=== PATIENT | female | born 1950 | race Caucasian/White ===

== ENCOUNTER 2019-01-02 22:05 | Observation (INO) ==
[2019-01-02] MEDS ORDERED: ASPIRIN 81 MG TAB.CHEW PO ONE (22:19)
[2019-01-02] MEDS: NITROGLYCERIN 0.4 MG/TAB BTL SL PRN ×3 (22:22→22:37)
[2019-01-02 22:27] LABS: Hematocrit 39.5 % (37.0-47.0); Hemoglobin 12.6 gm/dL (12.5-16.0); Mean Cell Volume 89.6 fl (78-100); Mean Corpuscular Hemoglobin 28.6 pg (27-31); Mean Corpuscular Hgb Conc 31.9 g/dl (32-36); Neutrophil # 4.5 K/mm3 (1.3-6.0); Neutrophil % 53.5 % (42-75.0); Platelet Count 182 K/mm3 (150-450); Red Blood Count 4.41 M/mm3 (4.2-5.4); Red Cell Distribution Width 14.5 % (11.5-14.0); White Blood Count 8.5 K/mm3 (4.0-10.5)
--- NOTE | 2019-01-02 22:27 | ERNOTE ---
Chest Pain/Cardiac HPI Chief Complaint: Chest Pain Time Seen by Provider: 01/02/19 22:16 Source: patient Exam Limitations: no limitations Immunizations: IMMUNIZATION HX Immunizations Up to Date Yes History of Influenza Vaccine Yes Hx Pneumococcal Vaccination Yes Allergies/Adverse Reactions: Allergies cephalexin Allergy (Intermediate, Verified 11/21/18 10:14) SOB mometasone furoate Allergy (Intermediate, Verified 11/21/18 10:14) Shortness of Breath Home Medications: HOME MEDICATIONS Calcium Carbonate/Vitamin D3 [Calcium 600 + Vit D Caplet] 1 ea PO BID 07/24/12 [Last Taken 01/02/19 08:00] Ranitidine HCl [Zantac] 300 mg PO HS 04/10/14 [Last Taken 01/01/19 22:00] Cholecalciferol [Vitamin D] 1,000 unit PO DAILY 07/17/18 [Last Taken 01/02/19 08:00] magnesium 30 mg tablet 30 mg PO DAILY 07/19/18 [Last Taken 01/02/19 08:00] aspirin 325 mg tablet 325 mg PO DAILY #90 tab 08/11/18 [Last Taken 01/02/19 08:00] lorazepam 1 mg tablet 1 mg PO HS PRN 08/11/18 [Last Taken 01/01/19 22:00] paliperidone ER 9 mg tablet,extended release 24 hr 9 mg PO QAM 08/11/18 [Last Taken 01/02/19 08:00] atorvastatin 80 mg tablet 80 mg PO DAILY #90 tab 11/11/18 [Last Taken 01/02/19 08:00] clopidogrel 75 mg tablet 75 mg PO DAILY #90 tab 11/11/18 [Last Taken 01/02/19 08:00] metoprolol tartrate 25 mg tablet 12.5 mg PO BID #90 tab 11/11/18 [Last Taken 01/02/19 18:00] Narrative: Patient states she had onset of left-sided aching chest pain at a 9 out of 10 since approximately 2 hours prior to arrival. She had 2 stents approximately 6 months ago and a additional stent 1 month after that. She states this feels similar but is worse. She denies other symptoms. She was at rest when the pain had onset. Timing: constant Severity/Quality: severe, aching Location: left chest Chest Pain Radiation: no radiation Activities at Onset: rest Modifying Factors - Improves: Present: nothing Modifying Factors - Worsens: Present: nothing Nitro Today/Relief: no nitro taken today Aspirin Treatment Today: 325 mg x 1, provided at home Associated Symptoms: Present: denies symptoms Prior Chest Pain/Cardiac Workup: Reports: prior chest pain, heart attack, cardiac cath Review of Systems - Review of Systems Constitutional: Absent: recent illness ENT: Absent: nose congestion, nasal drainage Respiratory: Absent: shortness of breath, cough Cardiology: Present: See HPI Gastrointestinal/Abdominal: Absent: nausea Genitourinary: Absent: frequency, pain Musculoskeletal: Absent: back pain Skin: Absent: rash Neurological: Absent: dizziness/light-headedness Endocrine: Absent: excessive sweating Medical History (Updated 08/11/18 @ 14:17 by Rose Augustin [facility]) Myocardial infarction (Resolved) 07/18/18 2 stents placed Headache occipital with suspected cervicogenic headaches and occipital neuralgia Hx of gastroesophageal reflux (GERD) Hx of osteopenia Menopausal syndrome Onset Date: ~12/08/12 Schizo-affective schizophrenia, chronic condition Visual changes Onset Date: ~07/16/17 Back pain Onset Date: ~10/10/13 Abnormal Pap smear of vagina follow up was WNL 02/04/16 Cough Onset Date: ~12/22/12 Surgical History: Surgical History (Updated 07/19/18 @ 15:56 by Sandie Ca [facility]) History of tympanoplasty of left ear collar bone repair Cervical polyp Onset Date: ~10/07/11 left History of colonoscopy Onset Date: ~04/25/14 [place]-sigmoid diverticulosis. Recheck 10 yrs. History of dilation and curettage Onset Date: ~10/07/11 [place] History of endometrial biopsy Onset Date: ~02/05/16 No hyperplasia, atypia, or malignant neoplasia identified. History of esophageal dilatation Onset Date: ~03/14/08 [place] History of esophagogastroduodenoscopy Onset Date: ~03/14/08 [place]-mild chronic active inflammation, reflux esophagitis. History of hysteroscopy Onset Date: ~10/07/11 [place] History of tympanoplasty Onset Date: ~12/31/1112 [place]-left [place] teeth removed Onset Date: ~1966 Family History: Family History (Updated 07/19/18 @ 15:58 by Sandie Ca [facility]) Sister Arthritis of the knees Hypertension Father Heart disease COPD (chronic obstructive pulmonary disease) Mother Myocardial infarction, Onset Age: 46 Other No pertinent family history Social History: Preferred Language [place]er Smoking Status Never smoker Psych History No pertinent hx Alcohol Use none Drug Use none (Last Updated 11/21/18 @ 12:33 by Izabella Gómez MD) No Social History Section defined Physical Exam - Physical Exam General Appearance: Present: wd/wn, alert, no apparent distress Head Exam: Present: normal inspection, no evidence of injury Ears, Nose, Throat: Present: normal ENT inspection Neck: Present: normal inspection, nontender, supple, full range of motion Respiratory: Present: no respiratory distress, no accessory muscle use, chest nontender, lungs clear Cardiovascular/Chest: Present: regular rate, rhythm, no murmur, extra beats Gastrointestinal/Abdominal: Present: normal bowel sounds, nontender, nondistended, soft Back Exam: Present: normal inspection, no CVA tenderness Extremity Exam: Present: normal inspection, normal range of motion, no edema Neurological Exam: Present: alert, oriented, normal mood/affect, no motor/sensory deficits Skin Exam: Present: normal color, warm/dry Lymphatic Exam: Present: no adenopathy Progress - Results and Orders Patient's Lab Results:: I have reviewed the patient's lab results. Results and Orders: Laboratory Tests 01/02/19 01/02/19 01/02/19 22:15 22:15 22:15 WBC 8.5 Hgb 12.6 Hct 39.5 Plt Count 182 PT 11.0 H INR (Anticoag Therapy) 1.12 H PTT ([place]) 25.2 Sodium 136 Potassium 3.4 D Chloride 100 BUN 24 H Creatinine 0.88 Random Glucose 104 Calcium 9.3 Total Bilirubin 0.5 AST 31 ALT 38 Alkaline Phosphatase 85 Troponin I Less than 0.017 Laboratory Tests 01/02/19 01/02/19 01/02/19 22:15 22:15 22:15 WBC 8.5 Hgb 12.6 Hct 39.5 Plt Count 182 PT 11.0 H INR (Anticoag Therapy) 1.12 H PTT ([place]) 25.2 Sodium 136 Potassium 3.4 D Chloride 100 BUN 24 H Creatinine 0.88 Random Glucose 104 Calcium 9.3 Total Bilirubin 0.5 AST 31 ALT 38 Alkaline Phosphatase 85 Troponin I Less than 0.017 01/03/19 01:10 WBC Hgb Hct Plt Count PT INR (Anticoag Therapy) PTT ([place]) Sodium Potassium Chloride BUN Creatinine Random Glucose Calcium Total Bilirubin AST ALT Alkaline Phosphatase Troponin I 0.023 - Vital Signs Patient's Vital Signs:: I have reviewed the patient's vital signs. Vital Signs: Vital Signs 01/02/19 22:13 Temperature 36.4 C Pulse Rate 69 Respiratory Rate 18 Blood Pressure 138/64 O2 Sat by Pulse Oximetry 98 - EKG EKG #1 EKG: NSR - with frequent PAC's., no ST T wave changes EKG read: Interp. by me - X-Ray X-Ray #1 X-Ray: chest Interpretation: Interp. by me X-ray Comments: No infiltrate or effusion, no pneumothorax. Cardiac silhouette appears normal. - Progress/Reassessment Chief Complaint: Chest Pain Progress:: Improved Progress Note-Subjective: 01/03/19 02:[address] Leahy and she agrees with obs admission for R/O MO. Departure Clinical Impression: History of myocardial infarction in last year Chest pain Qualifiers: Chest pain type: unspecified Qualified Code(s): R07.9 - Chest pain, unspecified - Departure Disposition: Still a patient Condition: Good
[2019-01-02 22:40] LABS: INR 1.12 INR (0.92-1.08); Partial Thrombolplastin Time 25.2 Seconds (24-32)
[2019-01-02 22:48] LABS: ALT 38 U/L (19-67); AST 31 U/L (0-48); Albumin * 3.5 gm/dl (3.4-5.0); Alkaline Phosphatase * 85 U/L (50-170); Anion Gap 11.6 mmol/L (6.8-13.8); BUN/Creatinine Ratio 27.3 (9.0-21.6); Bilirubin, Total 0.5 mg/dL (0.0-1.1); Blood Urea Nitrogen 24 mg/dL (3-23); Ca. Corrected For Albumin 9.4 mg/dL (8.4-10.2); Calcium * 9.3 mg/dL (7.9-10.9); Carbon Dioxide 27.8 mmol/L (24-32.6); Chloride 100 mmol/L (97-106); Glucose * 104 mg/dL (70-110); Potassium 3.4 mmol/L (3.4-4.6); Sodium 136 mmol/L (132-142); Total Protein 7.6 gm/dL (6.2-8.2); Troponin I Less than 0.017 ng/mL (0.00-0.10)
[2019-01-03] MEDS ORDERED: LORazepam 1 MG TABLET PO PRN (06:15)
--- NOTE | 2019-01-03 06:55 | HP ---
Chief Complaint - Chief Complaint Date of Service: 01/03/19 Time of Service: 06:40 Chief Complaint: chest pain History of Present Illness: Patient with PMHx of previous [place] with stents placed 5 months ago, presented with left sided chest pain. She reports it felt worse than her previous [place]. Initial troponin was negative, repeat was only 0.023. No signs of ischemia or infarct on EKG. She denies fevers, shortness of breath, cough, recent injury, anxiety. She was admitted to follow troponin and EKG. She is no longer having any pain, but reports she can tell she went through something yesterday. Medical History (Updated 01/03/19 @ 06:55 by Radha Leahy DO) Myocardial infarct Headache occipital with suspected cervicogenic headaches and occipital neuralgia Hx of gastroesophageal reflux (GERD) Hx of osteopenia Menopausal syndrome Onset Date: ~12/08/12 Schizo-affective schizophrenia, chronic condition Visual changes Onset Date: ~07/16/17 Back pain Onset Date: ~10/10/13 Abnormal Pap smear of vagina follow up was WNL 02/04/16 Cough Onset Date: ~12/22/12 Surgical History: Surgical History (Updated 01/03/19 @ 06:55 by Radha Leahy DO) History of tympanoplasty of left ear collar bone repair Cervical polyp Onset Date: ~10/07/11 left History of colonoscopy Onset Date: ~04/25/14 [place]-sigmoid diverticulosis. Recheck 10 yrs. History of dilation and curettage Onset Date: ~10/07/11 [place] History of endometrial biopsy Onset Date: ~02/05/16 No hyperplasia, atypia, or malignant neoplasia identified. History of esophageal dilatation Onset Date: ~03/14/08 [place] History of esophagogastroduodenoscopy Onset Date: ~03/14/08 [place]-mild chronic active inflammation, reflux esophagitis. History of tympanoplasty Onset Date: ~12/31/11 [place]-left [place] teeth removed Onset Date: ~1966 Family History: Family History (Updated 07/19/18 @ 15:58 by Sandie Ca [employer]) Sister Hypertension Arthritis of the knees Father COPD (chronic obstructive pulmonary disease) Heart disease Mother Myocardial infarction, Onset Age: 46 Other No pertinent family history Social History: Patient Lives/Resources [place] Utilized Occupation retired Preferred Language [place] Do you have any islam or Yes: buddhism cultural preference? Smoking Status Never smoker Have you smoked in the past 12 No months Do you dip or chew tobacco No Psych History No pertinent hx Alcohol Use none Drug Use none (Last Updated 11/21/18 @ 12:33 by Izabella Gómez MD) No Social History Section defined Review Of Systems (GEN) - Review of Systems Generalized/Overall Review: Absent: Fever EENTM: Absent: Throat Pain Respiratory: Absent: Cough, Shortness of Breath Cardiac: Present: Chest Pain. Absent: Edema Abdominal: Absent: Nausea Genitourinary: Present: No Symptoms Reported Skin: Present: No Symptoms Reported Immunizations: IMMUNIZATION HX Immunizations Up to Date Yes History of Influenza Vaccine Yes Hx Pneumococcal Vaccination Yes Allergies/Adverse Reactions: Allergies Allergy/AdvReac Type Severity Reaction Status Date / Time cephalexin Allergy Intermediate SOB Verified 11/21/18 10:14 mometasone furoate Allergy Intermediate Shortness Verified 11/21/18 10:14 of Breath Home Medications: HOME MEDICATIONS Calcium Carbonate/Vitamin D3 [Calcium 600 + Vit D Caplet] 1 ea PO BID 07/24/12 [Last Taken 01/02/19 08:00] Ranitidine HCl [Zantac] 300 mg PO HS 04/10/14 [Last Taken 01/01/19 22:00] Cholecalciferol [Vitamin D] 1,000 unit PO DAILY 07/17/18 [Last Taken 01/02/19 08:00] magnesium 30 mg tablet 30 mg PO DAILY 07/19/18 [Last Taken 01/02/19 08:00] aspirin 325 mg tablet 325 mg PO DAILY #90 tab 08/11/18 [Last Taken 01/02/19 08:00] lorazepam 1 mg tablet 1 mg PO HS PRN 08/11/18 [Last Taken 01/01/19 22:00] paliperidone ER 9 mg tablet,extended release 24 hr 9 mg PO QAM 08/11/18 [Last Taken 01/02/19 08:00] atorvastatin 80 mg tablet 80 mg PO DAILY #90 tab 11/11/18 [Last Taken 01/02/19 08:00] clopidogrel 75 mg tablet 75 mg PO DAILY #90 tab 11/11/18 [Last Taken 01/02/19 08:00] metoprolol tartrate 25 mg tablet 12.5 mg PO BID #90 tab 11/11/18 [Last Taken 01/02/19 18:00] Exam - Exam Vital Signs: Vital Signs - Last Taken Temp 36.4 C 01/03/19 02:41 Pulse 53 L 01/03/19 02:44 Resp 18 01/03/19 02:41 BP 115/48 01/03/19 02:41 Pulse Ox 96 01/03/19 02:41 Constitutional: Present: Alert, Oriented x3, Cooperative, No distress Respiratory: Present: chest non-tender, no respiratory distress, wheezing - mild, posterior bases Cardiovascular/Chest: Present: regular rate, rhythm Abdomen: Present: soft, nontender Extremity: Absent: lower extremity edema Neurologic: Present: alert Diagnostic Studies: Abnormal Lab Results 01/02/19 01/02/19 01/02/19 Range/Units 22:15 22:15 22:15 MCHC 31.9 L (32-36) g/dl RDW 14.5 H (11.5-14.0) % Monocytes % 11.9 H (0.0-9) % Eosinophils % 4.1 H (0.0-3.0) % PT 11.0 H (9.1-10.7) Seconds INR (Anticoag Therapy) 1.12 H (0.92-1.08) INR BUN 24 H (3-23) mg/dL BUN/Creatinine Ratio 27.3 H (9.0-21.6) Laboratory Results WBC 8.5 K/mm3 (4.0-10.5) 01/02/19 22:15 RBC 4.41 M/mm3 (4.2-5.4) 01/02/19 22:15 Hgb 12.6 gm/dL (12.5-16.0) 01/02/19 22:15 Hct 39.5 % (37.0-47.0) 01/02/19 22:15 MCV 89.6 fl (78-100) 01/02/19 22:15 MCH 28.6 pg (27-31) 01/02/19 22:15 MCHC 31.9 g/dl (32-36) L 01/02/19 22:15 RDW 14.5 % (11.5-14.0) H 01/02/19 22:15 Plt Count 182 K/mm3 (150-450) 01/02/19 22:15 MPV 11.0 fl (8-12.5) 01/02/19 22:15 Immature Gran % (Auto) 0.20 % (0.001-0.429) 01/02/19 22:15 Immature Gran # (Auto) 0.02 K/mm3 (0.000-0.0310) 01/02/19 22:15 53.5 % (42-75.0) 01/02/19 22:15 29.8 % (20-51) 01/02/19 22:15 11.9 % (0.0-9) H 01/02/19 22:15 4.1 % (0.0-3.0) H 01/02/19 22:15 0.5 % (0.0-1.0) 01/02/19 22:15 Nucleated RBC % 0.0 k/mm3 (0-1) 01/02/19 22:15 4.5 K/mm3 (1.3-6.0) 01/02/19 22:15 2.52 k/mm3 (1.5-3.5) 01/02/19 22:15 1.0 k/mm3 (0.0-1.0) 01/02/19 22:15 0.4 k/mm3 (0.0-0.7) 01/02/19 22:15 Absolute Basophils 0.0 k/mm3 (0.0-0.1) 01/02/19 22:15 PT 11.0 Seconds (9.1-10.7) H 01/02/19 22:15 INR (Anticoag Therapy) 1.12 INR (0.92-1.08) H 01/02/19 22:15 PTT ([place]) 25.2 Seconds (24-32) 01/02/19 22:15 Sodium 136 mmol/L (132-142) 01/02/19 22:15 136 mmol/L (130-142) 01/02/19 22:15 Potassium 3.4 mmol/L (3.4-4.6) D 01/02/19 22:15 Chloride 100 mmol/L (97-106) 01/02/19 22:15 Carbon Dioxide 27.8 mmol/L (24-32.6) 01/02/19 22:15 11.6 mmol/L (6.8-13.8) 01/02/19 22:15 BUN 24 mg/dL (3-23) H 01/02/19 22:15 0.88 mg/dL (0.4-1.4) 01/02/19 22:15 Est GFR (Non-Af Amer) 68 mL/min (60-130) 01/02/19 22:15 27.3 (9.0-21.6) H 01/02/19 22:15 104 mg/dL (70-110) 01/02/19 22:15 Calcium 9.3 mg/dL (7.9-10.9) 01/02/19 22:15 Calcium Adj for Albumin 9.4 mg/dL (8.4-10.2) 01/02/19 22:15 0.5 mg/dL (0.0-1.1) 01/02/19 22:15 AST 31 U/L (0-48) 01/02/19 22:15 ALT 38 U/L (19-67) 01/02/19 22:15 85 U/L (50-170) 01/02/19 22:15 0.023 ng/mL (0.00-0.10) 01/03/19 01:10 7.6 gm/dL (6.2-8.2) 01/02/19 22:15 3.5 gm/dl (3.4-5.0) 01/02/19 22:15 Assessment/Plan - Assessment/Plan (1) Chest pain Assessment: Differential includes ACS, DE, MSK, reflux, anxiety. With her history of DE, third troponin and EKG pending. Thus far not shown evidence of acute ischemia or infarct. Official read pending, but no obvious findings on chest x-ray. No concerning abnormalities on CBC or CMP. Should her troponin significantly increased, will potentially transfer. If no troponin elevation and no EKG changes, can DC home today. Problem: Resolved Qualifiers: Chest pain type: unspecified Qualified Code(s): R07.9 - Chest pain, unspecified (2) History of myocardial infarction in last year Assessment: Continue Plavix, metoprolol, aspirin, Crestor Problem: Chronic
--- NOTE | 2019-01-03 08:34 | DS ---
(1) Chest pain Problem: Resolved Qualifiers: Chest pain type: unspecified Qualified Code(s): R07.9 - Chest pain, unspecified (2) History of myocardial infarction in last year Problem: Chronic Description of Stay: atient with PMHx of previous [place] with stents placed 5 months ago, presented with left sided chest pain. She reports it felt worse than her previous [place]. Initial troponin was negative, repeat was only 0.023. No signs of ischemia or infarct on EKG. She denies fevers, shortness of breath, cough, recent injury, anxiety. Troponins were not elevated. She is no longer having any pain, but reports she can tell she went through something yesterday. She feels comfortable going home. Procedures Performed: none Results and Findings: Lab Pending Results 01/02/19 22:15: WBC 8.5, RBC 4.41, Hgb 12.6, Hct 39.5, MCV 89.6, MCH 28.6, MCHC 31.9 L, RDW 14.5 H, Plt Count 182, MPV 11.0, Immature Gran % (Auto) 0.20, Immature Gran # (Auto) 0.02, Neutrophils % 53.5, Lymphocytes % 29.8, Monocytes % 11.9 H, Eosinophils % 4.1 H, Basophils % 0.5, Nucleated RBC % 0.0, Neutrophils # 4.5, Lymphocytes # 2.52, Monocytes # 1.0, Eosinophils # 0.4, Absolute Basophils 0.0 01/02/19 22:15: PT 11.0 H, INR (Anticoag Therapy) 1.12 H, PTT ([place]) 25.2 01/02/19 22:15: Sodium 136, Plasma Sodium 136, Potassium 3.4 D, Chloride 100, Carbon Dioxide 27.8, Anion Gap 11.6, BUN 24 H, Creatinine 0.88, Est GFR (Non-Af Amer) 68, BUN/Creatinine Ratio 27.3 H, Random Glucose 104, Calcium 9.3, Calcium Adj for Albumin 9.4, Total Bilirubin 0.5, AST 31, ALT 38, Alkaline Phosphatase 85, Troponin I Less than 0.017, Total Protein 7.6, Albumin 3.5 01/03/19 01:10: Troponin I 0.023 01/03/19 07:00: Troponin I Less than 0.017 Discharge Location: Home Disposition: Home self-care Condition: Good Discharge Activity: Activity as tolerated Discharge Diet: General/regular food Referrals: Izabella Gómez MD [Primary Care Provider] - One Week Complete Home Medications List: Complete Home Medication List: Calcium Carbonate/Vitamin D3 [Calcium 600-Vit D3 400 Caplet] 1 ea PO BID 07/24/12 Ranitidine HCl [Zantac] 300 mg PO HS 04/10/14 Cholecalciferol [Vitamin D] 1,000 unit PO DAILY 07/17/18 magnesium 30 mg tablet 30 mg PO DAILY 07/19/18 aspirin 325 mg tablet 325 mg PO DAILY #90 tab 08/11/18 lorazepam 1 mg tablet 1 mg PO HS PRN 08/11/18 paliperidone ER 9 mg tablet,extended release 24 hr 9 mg PO QAM 08/11/18 atorvastatin 80 mg tablet 80 mg PO DAILY #90 tab 11/11/18 clopidogrel 75 mg tablet 75 mg PO DAILY #90 tab 11/11/18 metoprolol tartrate 25 mg tablet 12.5 mg PO BID #90 tab 11/11/18
[2019-01-03] MEDS ORDERED: ASPIRIN 325 MG TABLET.DR PO SCH (09:00)
[2019-01-03] MEDS ORDERED: PALIPERIDONE 9 MG PO SCH (09:00)
[2019-01-03] MEDS ORDERED: METOPROLOL TARTRATE 25 MG TABLET PO SCH (09:00)
[2019-01-03] MEDS ORDERED: CLOPIDOGREL BISULFATE 75 MG TABLET PO SCH (09:00)
[2019-01-03 09:40] VITALS: BP 119/48
[2019-01-03] MEDS ORDERED: ROSUVASTATIN CALCIUM 20 MG TABLET PO SCH (21:00)
[2019-01-03] MEDS ORDERED: FAMOTIDINE 20 MG TABLET PO SCH (21:00)
== END 2019-01-03 10:00 | disposition home or self-care (01) ==
LOC: ER 22:05 → MS 22:05
PROVIDERS: ADMIT Family Medicine; ATTEND Family Medicine
CPT/HCPCS: 36415; 71020; 71046; 80053; 84484; 85025; 85610; 85730; 93005; 99285; G0378

== ENCOUNTER 2021-01-25 17:24 | Observation (INO) ==
--- NOTE | 2021-01-25 18:01 | ERNOTE ---
Dizziness ER Record Date of Service: 01/25/21 Presenting Symptoms: dizziness, weakness Time Seen by Provider: 01/25/21 17:47 Source: patient Exam Limitations: no limitations Immunizations: IMMUNIZATION HX Immunizations Up to Date Yes History of Influenza Vaccine No Hx Pneumococcal Vaccination No Allergies/Adverse Reactions: Allergies Allergy/AdvReac Type Severity Reaction Status Date / Time cephalexin Allergy Intermediate SOB Verified 01/25/21 17:30 mometasone furoate Allergy Intermediate Shortness Verified 01/25/21 17:30 of Breath Home Medications: HOME MEDICATIONS Calcium Carbonate/Vitamin D3 [Calcium 600-Vit D3 400 Caplet] 1 ea PO BID 07/24/12 [Last Taken 01/02/19 08:00] Cholecalciferol [Vitamin D] 1,000 unit PO DAILY 07/17/18 [Last Taken 01/02/19 08:00] magnesium 30 mg tablet 30 mg PO DAILY 07/19/18 [Last Taken 01/02/19 08:00] lorazepam 1 mg tablet 1 mg PO HS PRN 08/11/18 [Last Taken 01/01/19 22:00] paliperidone 9 mg tablet,extended release 24 hr 9 mg PO QAM 08/11/18 [Last Taken 01/02/19 08:00] aspirin 81 mg tablet,delayed release 81 mg PO DAILY #90 tab 05/01/20 [Last Taken Unknown] atorvastatin 80 mg tablet 80 mg PO DAILY #90 tab 05/01/20 [Last Taken Unknown] clopidogrel 75 mg tablet 75 mg PO DAILY #90 tab 05/01/20 [Last Taken Unknown] nitroglycerin 0.4 mg sublingual tablet 0.4 mg SL Q5-15M PRN #14 tab 10/14/20 [Last Taken Unknown] alendronate 70 mg tablet 70 mg PO QWEEK #14 tab 11/21/20 [Last Taken Unknown] - History of Present Illness Narrative: 70-year-old female presents directly following an episode of weakness, dizziness, lightheadedness, difficulty ambulating, pain that extended from her ear to her jaw. Patient notes she has a significant history of TIA, she is concerned that she possibly had a similar-like event, she resolved approximately 30 minutes ago she drove herself to the hospital. She denies any acute illness, no significant trauma. She denies any other significant acute concerns at this time. Patient does not take any medications, she does take a daily aspirin and Plavix as well. She notes previously all of her symptoms resolved patient does have mild stutter when giving history however she notes this is baseline. She does not feel as though she has any significant deficits at this time. She otherwise denies any significant acute concerns. Review of Systems - Review of Systems Constitutional: Absent: fever, chills EYE: Absent: double vision, vision changes ENT: Absent: ear discharge, nose congestion Respiratory: Absent: shortness of breath, cough Cardiology: Absent: palpitations, syncope Gastrointestinal/Abdominal: Absent: nausea, vomiting, abdominal pain Genitourinary: Present: no symptoms reported Musculoskeletal: Absent: back pain, joint pain Skin: Absent: rash Neurological: Present: dizziness/light-headedness, weakness. Absent: headache, numbness, tingling Endocrine: Present: no symptoms reported Hematologic/Lymphatic: Present: no symptoms reported Psych: Present: no symptoms reported All Other Systems: All systems neg except as marked Medical History (Last Reviewed 01/25/21 @ 17:57 by KAITLYNN Nicole) Coronary artery disease (Chronic) Angina pectoris, unspecified Onset Date: Unknown COVID-19 vaccine administered Onset Date: ~10/29/20 1st dose 10/01/2020 and 2nd dose 10/29/2020 Hx of gastroesophageal reflux (GERD) Onset Date: Unknown Hx of osteopenia Onset Date: Unknown Hx-TIA (transient ischemic attack) Onset Date: Unknown Myocardial infarct Onset Date: 07/17/18 Osteopenia Onset Date: 2016 mild Schizo-affective schizophrenia, chronic condition Onset Date: ~1997 Visual changes Onset Date: 07/16/17 Back pain Onset Date: 10/10/13 Diverticulosis Onset Date: 04/25/14 sigmoid Headache Onset Date: Unknown occipital with suspected cervicogenic headaches and occipital neuralgia Hypothyroidism Onset Date: 11/12/14 Menopausal syndrome Onset Date: 12/08/12 Wears glasses Onset Date: Unknown Abnormal Pap smear of vagina Onset Date: Unknown follow up was WNL 02/04/16 Cough Onset Date: 12/22/12 Surgical History: Surgical History (Last Reviewed 01/25/21 @ 17:57 by KAITLYNN Nicole) History of tympanoplasty of left ear Onset Date: Unknown Cervical polyp Onset Date: 10/07/11 left History of colonoscopy Onset Date: 04/25/14 Bagan-sigmoid diverticulosis. Recheck 10 yrs. History of coronary artery stent placement Onset Date: 07/17/18 2 stents placed on 07/17/18, then 1 stent placed on 07/18/19 for a total of 3 History of dilation and curettage Onset Date: 10/07/11 [place]ier History of endometrial biopsy Onset Date: 02/05/16 No hyperplasia, atypia, or malignant neoplasia identified. History of esophageal dilatation Onset Date: 03/14/08 Mil[place] History of esophagogastroduodenoscopy Onset Date: 03/14/08 Milka-mild chronic active inflammation, reflux esophagitis. History of tympanoplasty Onset Date: ~2003 2003 & 12/31/1118-[id number]-wlsn [place] teeth removed Onset Date: ~1966 collar bone repair Onset Date: ~1952 resection Family History: Family History (Last Reviewed 01/25/21 @ 17:57 by KAITLYNN Nicole) Sister Hypertension Arthritis of the knees Father COPD (chronic obstructive pulmonary disease) Heart disease Mother Myocardial infarction, Onset Age: 46 Social History: (Last Reviewed 01/25/21 @ 17:57 by KAITLYNN Nicole) Social History: adopted: No long term: No Marital status: household members: none number of children: 2 current occupational status: disabled current occupational exposures/hazards: No Highest level of school completed/degree received: Associate degree: occupat Service: No Tobacco: Smoking Status: Never smoker Alcohol: alcohol intake: never Substance Use: substance use type: does not use Dietary Habits: caffeine: No Exercise: Physical activity type: walking frequency: 1-2 times per week Physical Exam - Physical Exam General Appearance: Present: wd/wn, alert, no apparent distress Head Exam: Present: normal inspection, no evidence of injury. Absent: raccoon eyes Eye Exam: Normal inspection: bilateral, PERRL: bilateral, EOMI: bilateral, Other: bilateral - Peripheral vision intact Ears, Nose, Throat: Present: normal ENT inspection, normal pharynx Neck: Present: normal inspection, nontender Respiratory: Present: no respiratory distress, normal breath sounds, no accessory muscle use, lungs clear Cardiovascular/Chest: Present: regular rate, rhythm, no murmur Gastrointestinal/Abdominal: Present: nontender, nondistended, soft Back Exam: Present: normal inspection, normal range of motion, no vertebral tenderness Extremity Exam: Present: normal inspection, non-tender, normal range of motion, no edema, other - No drift x4 extremity Neurological Exam: Present: alert, oriented, normal mood/affect, no motor/sensory deficits, legal transcriber II-XII nml as tested Skin Exam: Present: normal color, warm/dry Progress - Date and Time Seen: Date and Time: 01/25/21 17:59 70-year-old female presents with symptoms consistent with a previous TIA. And at this time symptoms have resolved. She notes she had significant weakness of her lower extremities, difficulty ambulating, facial pain. Patient's current NIH score is 0. She has no significant acute symptoms. She appears to be at her baseline without significant changes per patient. She is AOx4. She is neurologically intact. Stable to proceed with all examination without significant complications. Discussed with patient we did obtain baseline labs including, CBC, coags, CMP, head CT, EKG, chest x-ray. Patient expressed understanding will continue a work-up for a TIA like symptoms. Continue neurologic checks monitor for significant changes. Adjust treatment plan accordingly in ED. 01/25/21 19:31 Patient has no acute neurologic symptoms, significant concern for previous TIA due to reported symptoms. Patient's history, CT is negative for acute findings. Discussed with patient concern for medical necessity be admitted for further work-up including possible sources for embolus or thrombus. Discussed this case in detail with Dr. Jimenez the medicine physician leather production artisan. He agreed to accept the patient for further care and work-up. Did note that some of the services may not be available that we can discuss this with the patient and she wished to proceed with this treatment plan. Discussed the patient will be monitored for neurologic deficits or changes. She can continue to be at risk for evolution of symptoms. Patient expressed understanding wish to proceed with this treatment plan. Patient will continue to be monitored in the ED until admitted. COVID-19 test obtained. - Results and Orders Patient's Lab Results:: I have reviewed the patient's lab results. Results and Orders: Laboratory Last Values WBC 6.7 K/mm3 (4.0-10.5) 01/25/21 18:06 RBC 4.40 M/mm3 (4.2-5.4) 01/25/21 18:06 Hgb 13.1 gm/dL (12.5-16.0) 01/25/21 18:06 Hct 40.6 % (37.0-47.0) 01/25/21 18:06 MCV 92.3 fl (78-100) 01/25/21 18:06 MCH 29.8 pg (27-31) 01/25/21 18:06 MCHC 32.3 g/dl (32-36) 01/25/21 18:06 RDW 13.2 % (11.5-14.0) 01/25/21 18:06 Plt Count 183 K/mm3 (150-450) 01/25/21 18:06 MPV 10.0 fl (8-12.5) 01/25/21 18:06 Immature Gran % (Auto) 0.30 % (0.001-0.429) 01/25/21 18:06 Immature Gran # (Auto) 0.02 K/mm3 (0.000-0.0310) 01/25/21 18:06 Neutrophils % 55.6 % (42-75.0) 01/25/21 18:06 Lymphocytes % 23.4 % (20-51) 01/25/21 18:06 Monocytes % 15.8 % (0.0-9) H 01/25/21 18:06 Eosinophils % 4.3 % (0.0-3.0) H 01/25/21 18:06 Basophils % 0.6 % (0.0-1.0) 01/25/21 18:06 Nucleated RBC % 0.0 k/mm3 (0-1) 01/25/21 18:06 Neutrophils # 3.7 K/mm3 (1.3-6.0) 01/25/21 18:06 Lymphocytes # 1.57 k/mm3 (1.5-3.5) 01/25/21 18:06 Monocytes # 1.1 k/mm3 (0.0-1.0) H 01/25/21 18:06 Eosinophils # 0.3 k/mm3 (0.0-0.7) 01/25/21 18:06 Absolute Basophils 0.0 k/mm3 (0.0-0.1) 01/25/21 18:06 ESR 24 mm/hr (0-15) H 01/25/21 18:06 PT 10.8 Seconds (9.1-10.7) H 01/25/21 18:06 INR (Anticoag Therapy) 1.04 INR (0.92-1.08) 01/25/21 18:06 PTT ([place]) 25.6 Seconds (24-32) 01/25/21 18:06 Sodium 141 mmol/L (132-142) 01/25/21 18:06 Plasma Sodium 141 mmol/L (130-142) 01/25/21 18:06 Potassium 4.0 mmol/L (3.4-4.6) 01/25/21 18:06 Chloride 106 mmol/L (97-106) 01/25/21 18:06 Carbon Dioxide 28.6 mmol/L (24-32.6) 01/25/21 18:06 Anion Gap 10.4 mmol/L (6.8-13.8) 01/25/21 18:06 BUN 19 mg/dL (3-23) 01/25/21 18:06 Creatinine 0.79 mg/dL (0.4-1.4) 01/25/21 18:06 Est GFR (Non-Af Amer) 76 mL/min (60-130) 01/25/21 18:06 BUN/Creatinine Ratio 24.1 (9.0-21.6) H 01/25/21 18:06 Random Glucose 114 mg/dL (70-110) H 01/25/21 18:06 Calcium 8.5 mg/dL (7.9-10.9) 01/25/21 18:06 Calcium Adj for Albumin 8.6 mg/dL (8.4-10.2) 01/25/21 18:06 Total Bilirubin 0.4 mg/dL (0.0-1.1) 01/25/21 18:06 AST 21 U/L (0-48) 01/25/21 18:06 ALT 32 U/L (19-67) 01/25/21 18:06 Alkaline Phosphatase 68 U/L (50-170) 01/25/21 18:06 Total Protein 7.5 gm/dL (6.2-8.2) 01/25/21 18:06 Albumin 3.5 gm/dl (3.4-5.0) 01/25/21 18:06 - Vital Signs Patient's Vital Signs:: I have reviewed the patient's vital signs. Vital Signs: Vital Signs 01/25/21 17:25 01/25/21 17:43 Temperature 36.3 C Pulse Rate 69 68 Respiratory Rate 16 Blood Pressure 129/65 O2 Sat by Pulse Oximetry 94 - EKG EKG #1 EKG read: Interp. by me EKG Comments: First-degree block, sinus rhythm, reviewed with ED physician on staff - X-Ray X-Ray #1 X-Ray: chest Interpretation: Interp. by me X-ray Comments: No acute obvious cardiopulmonary processes evident - CT/Ultrasound CT/Ultrasound Narrative: No acute findings, see scanned report for details - Progress/Reassessment Chief Complaint: Dizziness Plan - Plan Plan: Admitted to the Medr floor for further work-up of transischemic attack Departure Clinical Impression: TIA (transient ischemic attack) - Departure Disposition: Still a patient Condition: Stable Print Language: Icelandic Referrals: Radha Leahy DO [Primary Care Provider] -
[2021-01-25 18:11] LABS: Hematocrit 40.6 % (37.0-47.0); Hemoglobin 13.1 gm/dL (12.5-16.0); Mean Cell Volume 92.3 fl (78-100); Mean Corpuscular Hemoglobin 29.8 pg (27-31); Mean Corpuscular Hgb Conc 32.3 g/dl (32-36); Neutrophil # 3.7 K/mm3 (1.3-6.0); Neutrophil % 55.6 % (42-75.0); Platelet Count 183 K/mm3 (150-450); Red Cell Distribution Width 13.2 % (11.5-14.0); White Blood Count 6.7 K/mm3 (4.0-10.5)
[2021-01-25 18:24] LABS: Prothrombin Time (Patient) 10.8 Seconds (9.1-10.7)
[2021-01-25 18:25] LABS: Albumin * 3.5 gm/dl (3.4-5.0); Anion Gap 10.4 mmol/L (6.8-13.8); BUN/Creatinine Ratio 24.1 (9.0-21.6); Bilirubin, Total 0.4 mg/dL (0.0-1.1); Ca. Corrected For Albumin 8.6 mg/dL (8.4-10.2); Calcium * 8.5 mg/dL (7.9-10.9); Carbon Dioxide 28.6 mmol/L (24-32.6); Total Protein 7.5 gm/dL (6.2-8.2)
[2021-01-25 18:38] LABS: INR 1.04 INR (0.92-1.08); Partial Thrombolplastin Time 25.6 Seconds (24-32)
[2021-01-25] MEDS ORDERED: LORazepam 1 MG TABLET PO PRN (22:05)
--- NOTE | 2021-01-26 07:25 | HP ---
Chief Complaint - Chief Complaint Date of Service: 01/26/21 Time of Service: 07:25 History of Present Illness: 70-year-old female presents with symptoms consistent with a previous TIA. And at this time symptoms have resolved. She notes she had significant weakness of her lower extremities, difficulty ambulating, facial pain. Patient's current NIH score is 0. She has no significant acute symptoms. She appears to be at her baseline without significant changes per patient. She is AOx4. She is neurologically intact. Stable to proceed with all examination without significant complications. Discussed with patient we did obtain baseline labs including, CBC, coags, CMP, head CT, EKG, chest x-ray. Patient expressed understanding will continue a work-up for a TIA like symptoms. Continue neurologic checks monitor for significant changes. Adjust treatment plan accordingly in ED. 01/25/21 19:31 Patient has no acute neurologic symptoms, significant concern for previous TIA due to reported symptoms. Patient's history, CT is negative for acute findings. Discussed with patient concern for medical necessity be admitted for further work-up including possible sources for embolus or thrombus. Discussed this case in detail with Dr. Jimenez the medicine physician applications consultant. He agreed to accept the patient for further care and work-up. Did note that some of the services may not be available that we can discuss this with the patient and she wished to proceed with this treatment plan. Discussed the patient will be monitored for neurologic deficits or changes. She can continue to be at risk for evolution of symptoms. Patient expressed understanding wish to proceed with this treatment plan. Patient will continue to be monitored in the ED until admitted. COVID-19 test obtained. Medical History (Last Reviewed 01/25/21 @ 21:16 by Mirlande Lucas RN) Coronary artery disease (Chronic) Angina pectoris, unspecified Onset Date: Unknown COVID-19 vaccine administered Onset Date: ~10/29/20 1st dose 10/01/2020 and 2nd dose 10/29/2020 Hx of gastroesophageal reflux (GERD) Onset Date: Unknown Hx of osteopenia Onset Date: Unknown Hx-TIA (transient ischemic attack) Onset Date: Unknown Myocardial infarct Onset Date: 07/17/18 Osteopenia Onset Date: 2016 mild Schizo-affective schizophrenia, chronic condition Onset Date: ~1997 Visual changes Onset Date: 07/16/17 Back pain Onset Date: 10/10/13 Diverticulosis Onset Date: 04/25/14 sigmoid Headache Onset Date: Unknown occipital with suspected cervicogenic headaches and occipital neuralgia Hypothyroidism Onset Date: 11/12/14 Menopausal syndrome Onset Date: 12/08/12 Wears glasses Onset Date: Unknown Abnormal Pap smear of vagina Onset Date: Unknown follow up was WNL 02/04/16 Cough Onset Date: 12/22/12 Surgical History: Surgical History (Last Reviewed 01/25/21 @ 21:16 by Mirlande Lucas RN) History of tympanoplasty of left ear Onset Date: Unknown Cervical polyp Onset Date: 10/07/11 left History of colonoscopy Onset Date: 04/25/14 Bagan-sigmoid diverticulosis. Recheck 10 yrs. History of coronary artery stent placement Onset Date: 07/17/18 2 stents placed on 07/17/18, then 1 stent placed on 07/18/19 for a total of 3 History of dilation and curettage Onset Date: 10/07/11 [place] History of endometrial biopsy Onset Date: 02/05/16 No hyperplasia, atypia, or malignant neoplasia identified. History of esophageal dilatation Onset Date: 03/14/08 Milka History of esophagogastroduodenoscopy Onset Date: 03/14/08 Milka-mild chronic active inflammation, reflux esophagitis. History of tympanoplasty Onset Date: ~2003 2003 & 12/31/1110-Oxgnwia-letl [place] teeth removed Onset Date: ~1966 collar bone repair Onset Date: ~1952 resection Family History: Family History (Last Updated 01/25/21 @ 21:18 by Mirlande Lucas RN) Sister Arthritis of the knees Hypertension Father Heart disease COPD (chronic obstructive pulmonary disease) Mother Myocardial infarction, Onset Age: 46 Daughter Breast cancer in female Social History: (Last Reviewed 01/25/21 @ 17:57 by KAITLYNN Nicole) Social History: adopted: No fci: No Marital status: household members: none number of children: 2 current occupational status: disabled current occupational exposures/hazards: No Highest level of school completed/degree received: Associate degree: occupat Service: No Tobacco: Smoking Status: Never smoker Alcohol: alcohol intake: never Substance Use: substance use type: does not use Dietary Habits: caffeine: No Exercise: Physical activity type: walking frequency: 1-2 times per week Immunizations: IMMUNIZATION HX Immunizations Up to Date Yes History of Influenza Vaccine No Hx Pneumococcal Vaccination No Allergies/Adverse Reactions: Allergies Allergy/AdvReac Type Severity Reaction Status Date / Time cephalexin Allergy Intermediate SOB Verified 01/25/21 17:30 mometasone furoate Allergy Intermediate Shortness Verified 01/25/21 17:30 of Breath Home Medications: HOME MEDICATIONS Calcium Carbonate/Vitamin D3 [Calcium 600-Vit D3 400 Caplet] 1 ea PO BID 07/24/12 [Last Taken 01/02/19 08:00] Cholecalciferol [Vitamin D] 1,000 unit PO DAILY 07/17/18 [Last Taken 01/02/19 08:00] magnesium 30 mg tablet 30 mg PO DAILY 07/19/18 [Last Taken 01/02/19 08:00] lorazepam 1 mg tablet 1 mg PO HS PRN 08/11/18 [Last Taken 01/01/19 22:00] paliperidone 9 mg tablet,extended release 24 hr 9 mg PO QAM 08/11/18 [Last Taken 01/02/19 08:00] aspirin 81 mg tablet,delayed release 81 mg PO DAILY #90 tab 05/01/20 [Last Taken Unknown] atorvastatin 80 mg tablet 80 mg PO DAILY #90 tab 05/01/20 [Last Taken Unknown] clopidogrel 75 mg tablet 75 mg PO DAILY #90 tab 05/01/20 [Last Taken Unknown] nitroglycerin 0.4 mg sublingual tablet 0.4 mg SL Q5-15M PRN #14 tab 10/14/20 [Last Taken Unknown] alendronate 70 mg tablet 70 mg PO QWEEK #14 tab 11/21/20 [Last Taken Unknown] Exam - Exam Vital Signs: Vital Signs - Last Taken Temp 36.6 C 01/26/21 06:00 Pulse 63 01/26/21 06:00 Resp 16 01/26/21 06:00 BP 118/30 01/26/21 06:00 Pulse Ox 93 01/26/21 06:00 Diagnostic Studies: Abnormal Lab Results 01/25/21 01/25/21 01/25/21 Range/Units 18:06 18:06 18:06 Monocytes % 15.8 H (0.0-9) % Eosinophils % 4.3 H (0.0-3.0) % Monocytes # 1.1 H (0.0-1.0) k/mm3 ESR 24 H (0-15) mm/hr PT 10.8 H (9.1-10.7) Seconds BUN/Creatinine Ratio (9.0-21.6) Random Glucose (70-110) mg/dL 01/25/21 Range/Units 18:06 Monocytes % (0.0-9) % Eosinophils % (0.0-3.0) % Monocytes # (0.0-1.0) k/mm3 ESR (0-15) mm/hr PT (9.1-10.7) Seconds BUN/Creatinine Ratio 24.1 H (9.0-21.6) Random Glucose 114 H (70-110) mg/dL Laboratory Results WBC 6.7 K/mm3 (4.0-10.5) 01/25/21 18:06 RBC 4.40 M/mm3 (4.2-5.4) 01/25/21 18:06 Hgb 13.1 gm/dL (12.5-16.0) 01/25/21 18:06 Hct 40.6 % (37.0-47.0) 01/25/21 18:06 MCV 92.3 fl (78-100) 01/25/21 18:06 MCH 29.8 pg (27-31) 01/25/21 18:06 MCHC 32.3 g/dl (32-36) 01/25/21 18:06 RDW 13.2 % (11.5-14.0) 01/25/21 18:06 Plt Count 183 K/mm3 (150-450) 01/25/21 18:06 MPV 10.0 fl (8-12.5) 01/25/21 18:06 Immature Gran % (Auto) 0.30 % (0.001-0.429) 01/25/21 18:06 Immature Gran # (Auto) 0.02 K/mm3 (0.000-0.0310) 01/25/21 18:06 Neutrophils % 55.6 % (42-75.0) 01/25/21 18:06 Lymphocytes % 23.4 % (20-51) 01/25/21 18:06 Monocytes % 15.8 % (0.0-9) H 01/25/21 18:06 Eosinophils % 4.3 % (0.0-3.0) H 01/25/21 18:06 Basophils % 0.6 % (0.0-1.0) 01/25/21 18:06 Nucleated RBC % 0.0 k/mm3 (0-1) 01/25/21 18:06 Neutrophils # 3.7 K/mm3 (1.3-6.0) 01/25/21 18:06 Lymphocytes # 1.57 k/mm3 (1.5-3.5) 01/25/21 18:06 Monocytes # 1.1 k/mm3 (0.0-1.0) H 01/25/21 18:06 Eosinophils # 0.3 k/mm3 (0.0-0.7) 01/25/21 18:06 Absolute Basophils 0.0 k/mm3 (0.0-0.1) 01/25/21 18:06 ESR 24 mm/hr (0-15) H 01/25/21 18:06 PT 10.8 Seconds (9.1-10.7) H 01/25/21 18:06 INR (Anticoag Therapy) 1.04 INR (0.92-1.08) 01/25/21 18:06 PTT ([place]) 25.6 Seconds (24-32) 01/25/21 18:06 Sodium 141 mmol/L (132-142) 01/25/21 18:06 Plasma Sodium 141 mmol/L (130-142) 01/25/21 18:06 Potassium 4.0 mmol/L (3.4-4.6) 01/25/21 18:06 Chloride 106 mmol/L (97-106) 01/25/21 18:06 Carbon Dioxide 28.6 mmol/L (24-32.6) 01/25/21 18:06 Anion Gap 10.4 mmol/L (6.8-13.8) 01/25/21 18:06 BUN 19 mg/dL (3-23) 01/25/21 18:06 Creatinine 0.79 mg/dL (0.4-1.4) 01/25/21 18:06 Est GFR (Non-Af Amer) 76 mL/min (60-130) 01/25/21 18:06 BUN/Creatinine Ratio 24.1 (9.0-21.6) H 01/25/21 18:06 Random Glucose 114 mg/dL (70-110) H 01/25/21 18:06 Calcium 8.5 mg/dL (7.9-10.9) 01/25/21 18:06 Calcium Adj for Albumin 8.6 mg/dL (8.4-10.2) 01/25/21 18:06 Total Bilirubin 0.4 mg/dL (0.0-1.1) 01/25/21 18:06 AST 21 U/L (0-48) 01/25/21 18:06 ALT 32 U/L (19-67) 01/25/21 18:06 Alkaline Phosphatase 68 U/L (50-170) 01/25/21 18:06 Total Protein 7.5 gm/dL (6.2-8.2) 01/25/21 18:06 Albumin 3.5 gm/dl (3.4-5.0) 01/25/21 18:06 SARS-CoV-2 (PCR) Not detected (NotDetected) 01/25/21 19:30
--- NOTE | 2021-01-26 07:58 | HPDIS ---
Chief Complaint - Chief Complaint Date of Service: 01/26/21 Time of Service: 07:57 Chief Complaint: transient weakness History of Present Illness: Cleo Carrillo is a 70-year-old white female with past medical history significant for TIA, coronary artery disease, osteoporosis who was admitted on 01/25/2021 because of weakness. On the morning of admission the patient experienced generalized weakness and was not able to ambulate. She had accompanying lightheadedness and dizziness and felt she was going to pass out. She got to her bed and rested for 1 hour and all of her symptoms disappeared. Fearing that she could have had another TIA she went to the emergency room were her head CT scan showed no acute intracranial process and no bleed. She is on aspirin and clopidogrel . Her EKG, chest x-ray, CBC and CMP were unremarkable. She was then admitted for neuro checks. The patient was observed overnight and did not have any recurrence of her signs and symptoms. Medical History (Last Reviewed 01/25/21 @ 21:16 by Mirlande Lucas RN) Coronary artery disease (Chronic) Angina pectoris, unspecified Onset Date: Unknown COVID-19 vaccine administered Onset Date: ~10/29/20 1st dose 10/01/2020 and 2nd dose 10/29/2020 Hx of gastroesophageal reflux (GERD) Onset Date: Unknown Hx of osteopenia Onset Date: Unknown Hx-TIA (transient ischemic attack) Onset Date: Unknown Myocardial infarct Onset Date: 07/17/18 Osteopenia Onset Date: 2016 mild Schizo-affective schizophrenia, chronic condition Onset Date: ~1997 Visual changes Onset Date: 07/16/17 Back pain Onset Date: 10/10/13 Diverticulosis Onset Date: 04/25/14 sigmoid Headache Onset Date: Unknown occipital with suspected cervicogenic headaches and occipital neuralgia Hypothyroidism Onset Date: 11/12/14 Menopausal syndrome Onset Date: 12/08/12 Wears glasses Onset Date: Unknown Abnormal Pap smear of vagina Onset Date: Unknown follow up was WNL 02/04/16 Cough Onset Date: 12/22/12 Surgical History: Surgical History (Last Reviewed 01/25/21 @ 21:16 by Mirlande Lucas RN) History of tympanoplasty of left ear Onset Date: Unknown Cervical polyp Onset Date: 10/07/11 left History of colonoscopy Onset Date: 04/25/14 Bagan-sigmoid diverticulosis. Recheck 10 yrs. History of coronary artery stent placement Onset Date: 07/17/18 2 stents placed on 07/17/18, then 1 stent placed on 07/18/19 for a total of 3 History of dilation and curettage Onset Date: 10/07/11 Rosanna History of endometrial biopsy Onset Date: 02/05/16 No hyperplasia, atypia, or malignant neoplasia identified. History of esophageal dilatation Onset Date: 03/14/08 Milka History of esophagogastroduodenoscopy Onset Date: 03/14/08 Milka-mild chronic active inflammation, reflux esophagitis. History of tympanoplasty Onset Date: ~2003 2003 & 12/31/1131-[id number] [place] teeth removed Onset Date: ~1966 collar bone repair Onset Date: ~1952 resection Family History: Family History (Last Updated 01/25/21 @ 21:18 by Mirlande Lucas RN) Sister Arthritis of the knees Hypertension Father Heart disease COPD (chronic obstructive pulmonary disease) Mother Myocardial infarction, Onset Age: 46 Daughter Breast cancer in female Social History: (Last Reviewed 01/25/21 @ 17:57 by KAITLYNN Nicole) Social History: adopted: No long term: No Marital status: household members: none number of children: 2 current occupational status: disabled current occupational exposures/hazards: No Highest level of school completed/degree received: Associate degree: occupat Service: No Tobacco: Smoking Status: Never smoker Alcohol: alcohol intake: never Substance Use: substance use type: does not use Dietary Habits: caffeine: No Exercise: Physical activity type: walking frequency: 1-2 times per week Review Of Systems (GEN) - Review of Systems Generalized/Overall Review: Present: Weakness. Absent: Chills EENTM: Absent: Blurred Vision, Double Vision Respiratory: Absent: Cough, Shortness of Breath, Orthopnea Cardiac: Absent: Chest Pain, Edema, Palpitations Abdominal: Absent: Nausea, Vomiting, Abdominal Pain Genitourinary: Absent: Urgency, Frequency Musculoskeletal: Absent: Joint Pain, Back Pain Neurological: Absent: Headache Skin: Absent: Lesions, Rash Misc: All systems neg except as marked Immunizations: IMMUNIZATION HX Immunizations Up to Date Yes History of Influenza Vaccine No Hx Pneumococcal Vaccination No Allergies/Adverse Reactions: Allergies Allergy/AdvReac Type Severity Reaction Status Date / Time cephalexin Allergy Intermediate SOB Verified 01/25/21 17:30 mometasone furoate Allergy Intermediate Shortness Verified 01/25/21 17:30 of Breath Home Medications: HOME MEDICATIONS Calcium Carbonate/Vitamin D3 [Calcium 600-Vit D3 400 Caplet] 1 ea PO BID 07/24/12 [Last Taken 01/02/19 08:00] Cholecalciferol [Vitamin D] 1,000 unit PO DAILY 07/17/18 [Last Taken 01/02/19 08:00] magnesium 30 mg tablet 30 mg PO DAILY 07/19/18 [Last Taken 01/02/19 08:00] lorazepam 1 mg tablet 1 mg PO HS PRN 08/11/18 [Last Taken 01/01/19 22:00] paliperidone 9 mg tablet,extended release 24 hr 9 mg PO QAM 08/11/18 [Last Taken 01/02/19 08:00] aspirin 81 mg tablet,delayed release 81 mg PO DAILY #90 tab 05/01/20 [Last Taken Unknown] atorvastatin 80 mg tablet 80 mg PO DAILY #90 tab 05/01/20 [Last Taken Unknown] clopidogrel 75 mg tablet 75 mg PO DAILY #90 tab 05/01/20 [Last Taken Unknown] nitroglycerin 0.4 mg sublingual tablet 0.4 mg SL Q5-15M PRN #14 tab 10/14/20 [Last Taken Unknown] alendronate 70 mg tablet 70 mg PO QWEEK #14 tab 11/21/20 [Last Taken Unknown] Exam - Exam Vital Signs: Vital Signs - Last Taken Temp 36.6 C 01/26/21 06:00 Pulse 63 01/26/21 06:00 Resp 16 01/26/21 06:00 BP 118/30 01/26/21 06:00 Pulse Ox 93 01/26/21 06:00 Constitutional: Present: Alert, Oriented x3, Cooperative ENT Exam: Present: hearing grossly normal Eye Exam: bilateral eye: normal inspection, PERRL, EOMI Neck: Present: supple. Absent: lymphadenopathy (R), lymphadenopathy (L) Respiratory: Present: lungs clear, No rales, No wheezing Cardiovascular/Chest: Present: regular rate, rhythm, no JVD, systolic murmur Abdomen: Present: Normal bowel sounds, soft, nontender, nondistended Extremity: Present: no calf tenderness. Absent: upper extremity DVT Diagnostic Studies: Abnormal Lab Results 0601/25/21 01/25/21 Range/Units 18:06 18:06 18:06 Monocytes % 15.8 H (0.0-9) % Eosinophils % 4.3 H (0.0-3.0) % Monocytes # 1.1 H (0.0-1.0) k/mm3 ESR 24 H (0-15) mm/hr PT 10.8 H (9.1-10.7) Seconds BUN/Creatinine Ratio (9.0-21.6) Random Glucose (70-110) mg/dL 01/25/21 Range/Units 18:06 Monocytes % (0.0-9) % Eosinophils % (0.0-3.0) % Monocytes # (0.0-1.0) k/mm3 ESR (0-15) mm/hr PT (9.1-10.7) Seconds BUN/Creatinine Ratio 24.1 H (9.0-21.6) Random Glucose 114 H (70-110) mg/dL Laboratory Results WBC 6.7 K/mm3 (4.0-10.5) 01/25/21 18:06 RBC 4.40 M/mm3 (4.2-5.4) 01/25/21 18:06 Hgb 13.1 gm/dL (12.5-16.0) 01/25/21 18:06 Hct 40.6 % (37.0-47.0) 01/25/21 18:06 MCV 92.3 fl (78-100) 01/25/21 18:06 MCH 29.8 pg (27-31) 01/25/21 18:06 MCHC 32.3 g/dl (32-36) 01/25/21 18:06 RDW 13.2 % (11.5-14.0) 01/25/21 18:06 Plt Count 183 K/mm3 (150-450) 01/25/21 18:06 MPV 10.0 fl (8-12.5) 01/25/21 18:06 Immature Gran % (Auto) 0.30 % (0.001-0.429) 01/25/21 18:06 Immature Gran # (Auto) 0.02 K/mm3 (0.000-0.0310) 01/25/21 18:06 Neutrophils % 55.6 % (42-75.0) 01/25/21 18:06 Lymphocytes % 23.4 % (20-51) 01/25/21 18:06 Monocytes % 15.8 % (0.0-9) H 01/25/21 18:06 Eosinophils % 4.3 % (0.0-3.0) H 01/25/21 18:06 Basophils % 0.6 % (0.0-1.0) 01/25/21 18:06 Nucleated RBC % 0.0 k/mm3 (0-1) 01/25/21 18:06 Neutrophils # 3.7 K/mm3 (1.3-6.0) 01/25/21 18:06 Lymphocytes # 1.57 k/mm3 (1.5-3.5) 01/25/21 18:06 Monocytes # 1.1 k/mm3 (0.0-1.0) H 01/25/21 18:06 Eosinophils # 0.3 k/mm3 (0.0-0.7) 01/25/21 18:06 Absolute Basophils 0.0 k/mm3 (0.0-0.1) 01/25/21 18:06 ESR 24 mm/hr (0-15) H 01/25/21 18:06 PT 10.8 Seconds (9.1-10.7) H 01/25/21 18:06 INR (Anticoag Therapy) 1.04 INR (0.92-1.08) 01/25/21 18:06 PTT (Kindra) 25.6 Seconds (24-32) 01/25/21 18:06 Sodium 141 mmol/L (132-142) 01/25/21 18:06 Plasma Sodium 141 mmol/L (130-142) 01/25/21 18:06 Potassium 4.0 mmol/L (3.4-4.6) 01/25/21 18:06 Chloride 106 mmol/L (97-106) 01/25/21 18:06 Carbon Dioxide 28.6 mmol/L (24-32.6) 01/25/21 18:06 Anion Gap 10.4 mmol/L (6.8-13.8) 01/25/21 18:06 BUN 19 mg/dL (3-23) 01/25/21 18:06 Creatinine 0.79 mg/dL (0.4-1.4) 01/25/21 18:06 Est GFR (Non-Af Amer) 76 mL/min (60-130) 01/25/21 18:06 BUN/Creatinine Ratio 24.1 (9.0-21.6) H 01/25/21 18:06 Random Glucose 114 mg/dL (70-110) H 01/25/21 18:06 Calcium 8.5 mg/dL (7.9-10.9) 01/25/21 18:06 Calcium Adj for Albumin 8.6 mg/dL (8.4-10.2) 01/25/21 18:06 Total Bilirubin 0.4 mg/dL (0.0-1.1) 01/25/21 18:06 AST 21 U/L (0-48) 01/25/21 18:06 ALT 32 U/L (19-67) 01/25/21 18:06 Alkaline Phosphatase 68 U/L (50-170) 01/25/21 18:06 Total Protein 7.5 gm/dL (6.2-8.2) 01/25/21 18:06 Albumin 3.5 gm/dl (3.4-5.0) 01/25/21 18:06 SARS-CoV-2 (PCR) Not detected (NotDetected) 01/25/21 19:30 Assessment/Plan - Narrative Narrative: Cleo was admitted for generalized weakness especially of her lower extremities associated with lightheadedness and dizziness which felt like a TIA in the past. Her work-up including head CT scan, EKG, and blood work were unremarkable. She is admitted for neurochecks. - Assessment/Plan (1) Lower extremity weakness Problem: Acute Qualifiers: Laterality: bilateral Qualified Code(s): R29.898 - Other symptoms and signs involving the musculoskeletal system (2) TIA (transient ischemic attack) Problem: Acute (3) Coronary artery disease Problem: Chronic (1) Lower extremity weakness Problem: Acute Qualifiers: Laterality: bilateral Qualified Code(s): R29.898 - Other symptoms and signs involving the musculoskeletal system (2) TIA (transient ischemic attack) Problem: Acute (3) Coronary artery disease Problem: Chronic Date of Discharge:: 01/26/21 Hospital Course: Cleo Carrillo is a 70-year-old white female with past medical history significant for TIA, coronary artery disease, osteoporosis who was admitted on 01/25/2021 because of weakness. On the morning of admission the patient experienced generalized weakness especially of her lower extremities and was not able to ambulate. She had accompanying lightheadedness and dizziness and felt she was going to pass out. She got to her bed and rested for 1 hour and all of her symptoms disappeared. Fearing that she could have had another TIA she went to the emergency room were her head CT scan showed no acute intracranial process and no bleed. She is on aspirin and clopidogrel . Her EKG, chest x-ray, CBC and CMP were unremarkable. She was then admitted for neuro checks. The patient was observed overnight and did not have any recurrence of her signs and symptoms. We will discharge her today and schedule her an MRI, carotid ultrasound, and echocardiogram with bubble study and a 48-hour Holter monitor. If these are normal consider doing an MRI of her lumbosacral spine. The patient knows to come back to the emergency room if she experiences recurrence of her symptoms or strokelike symptoms. Procedures Performed: none Results and Findings: Lab Pending Results 01/25/21 18:06: WBC 6.7, RBC 4.40, Hgb 13.1, Hct 40.6, MCV 92.3, MCH 29.8, MCHC 32.3, RDW 13.2, Plt Count 183, MPV 10.0, Immature Gran % (Auto) 0.30, Immature Gran # (Auto) 0.02, Neutrophils % 55.6, Lymphocytes % 23.4, Monocytes % 15.8 H, Eosinophils % 4.3 H, Basophils % 0.6, Nucleated RBC % 0.0, Neutrophils # 3.7, Lymphocytes # 1.57, Monocytes # 1.1 H, Eosinophils # 0.3, Absolute Basophils 0.0 01/25/21 18:06: ESR 24 H 01/25/21 18:06: PT 10.8 H, INR (Anticoag Therapy) 1.04, PTT (Kindra) 25.6 01/25/21 18:06: Sodium 141, Plasma Sodium 141, Potassium 4.0, Chloride 106, Carbon Dioxide 28.6, Anion Gap 10.4, BUN 19, Creatinine 0.79, Est GFR (Non-Af Amer) 76, BUN/Creatinine Ratio 24.1 H, Random Glucose 114 H, Calcium 8.5, Calcium Adj for Albumin 8.6, Total Bilirubin 0.4, AST 21, ALT 32, Alkaline Phosphatase 68, Total Protein 7.5, Albumin 3.5 01/25/21 19:30: SARS-CoV-2 (PCR) Not detected Discharge Location: Home Disposition: Home self-care Condition: Stable Discharge Activity: Activity as tolerated Discharge Diet: Low salt Referrals: Radha Leahy DO [Primary Care Provider] - Additional Patient Instructions (free text): Follow-up with your PCP Dr. Macias next week. Complete Home Medications List: Complete Home Medication List: Calcium Carbonate/Vitamin D3 [Calcium 600-Vit D3 400 Caplet] 1 ea PO BID 07/24/12 Cholecalciferol [Vitamin D] 1,000 unit PO DAILY 07/17/18 magnesium 30 mg tablet 30 mg PO DAILY 07/19/18 lorazepam 1 mg tablet 1 mg PO HS PRN 08/11/18 paliperidone 9 mg tablet,extended release 24 hr 9 mg PO QAM 08/11/18 aspirin 81 mg tablet,delayed release 81 mg PO DAILY #90 tab 05/01/20 atorvastatin 80 mg tablet 80 mg PO DAILY #90 tab 05/01/20 clopidogrel 75 mg tablet 75 mg PO DAILY #90 tab 05/01/20 nitroglycerin 0.4 mg sublingual tablet 0.4 mg SL Q5-15M PRN #14 tab 10/14/20 alendronate 70 mg tablet 70 mg PO QWEEK #14 tab 11/21/20
[2021-01-26 09:10] VITALS: BP 122/58
== END 2021-01-26 09:25 | disposition home or self-care (01) ==
LOC: MS 17:24 → ER 17:24 → MS 21:00
PROVIDERS: ADMIT Internal Medicine; ATTEND Family Medicine
DX: R42 Dizziness and giddiness; Z86.73 Personal history of transient ischemic attack (TIA), and cerebral infarction without residual deficits; R53.1 Weakness; G45.9 Transient cerebral ischemic attack, unspecified; I25.10 Atherosclerotic heart disease of native coronary artery without angina pectoris; R29.898 Other symptoms and signs involving the musculoskeletal system